=== PATIENT | female | born 1975 | race Caucasian/White ===

== ENCOUNTER 2025-06-08 00:27 | Day surgery (SDC) | payer BC, SELFPAY ==
[2025-05-28 11:56] VITALS: BMI 26.5
--- OUTSIDE RECORDS SUMMARY | 2025-06-08 00:31 | XMS_ITS | Clinical Summary ---
Author Organization [facility] Address [facility] [place] [address] Care Team Providers Care Management Associate Name Role Phone Mer Schilling DO Primary Care Provider [phone] Allergies No known active allergies Medications Multiple Vitamin (MULTIVITAMIN ADULT OR) Active methylPREDNISol one, OBI, 4 MG tabletIndicatio ns:Strain of neck muscle, initial encounter 6 TABLETS ON DAY ONE, 5 TABLETS DAY TWO, 4 TABLETS DAY THREE, 3 TABLETS DAY FOUR, 2 TABLETS DAY FIVE, AND 1 TABLET DAY SIX 1 each 10/25/2020 Active Active Problems No known active problems Immunizations Immunization Administration Dates Next Due Flucelvax 6 Months+ (Prefilled Syringe) 05/08/20 18,05/06/2017,06/12/2016 Influenza Adult (Generic) 05/10/2020,05/16/2015 PFIZER COVID-19 (ORIGINAL FO RMULATION, PURPLE CAP) mRNA, LNP-S, PF, 30 MCG/0.3 ML DOSE 10/03/2020,09/05/2020 Family History Medical History Relation Comments Heart Disease Father Relation Status Comments Father Social History Tobacco Use Types Packs/Day Years Used Date Smoking Tobacco: Never Smokeless Tobacco: Never Tobacco Cessation:Counseling Given: No Alcohol Use Standard Drinks/Week Comments Yes 0 (1 standard drink = 0.6 oz pur e alcohol) PHQ-2 Answer Date Recorded PHQ-2 Score - If the patient scores above 3, please move on to questions 3-9 0 10/25/2020 Comments No Sex and Gender Information Value Date Recorded Sex Assigned at Not on file 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 Gender Identity Not on file Sexual Orientation Not on file Last Filed Vital Signs Vital Sign Reading Time Taken Comments Blood Pressure 122/84 10/25/2020 9:58 AM CDT Pulse 72 10/25/2020 9:58 AM CDT Temperature 36.7 C (98.1 F) 10/25/2020 9:58 AM CDT Respiratory Rate 16 10/25/2020 9:58 AM CDT Oxygen Saturation 99% 10/25/2020 9:58 AM CDT Inhaled Oxygen Concentration - - Weight 60.9 kg (134 lb 4.8 oz) 10/25/2020 9:58 A M CDT Height 154.9 cm (5' 1) 10/25/2020 9:58 AM CDT Body Mass Index 25.38 10/25/2020 9:58 AM CDT Plan of Treatment Health Maintenance Due Date Last Done Comments Cervical Cancer Screening Pap Smear (Age 30 to 64) Every 3 Years 1977 Colorectal Cancer Screening Colonoscopy (10 Years) 1977 Annual Physical 1980 Hepatitis C 1995 DTaP, Tdap and Td Vaccines (1 - Tdap) 1996 Hepatitis B Vaccines (1 of 3 - 19+ 3-dose series) 1996 Cervical Cancer Screening Pap with HPV Testing (Age 30 to 64) Every 5 Years 2007 Cervical Cancer Screening with HPV 2007 Mammogram Screening 2017 PHQ-2 (Physician Andes) 08/02/2024 COVID-19 Vaccine ( season) 2025 10/03/2020, 09/05/2020 Influenza Adult (#1) 2025 05/10/2020, 05/08/2018, 05/06/2017, Additional history exists Hepatitis A Vaccines Aged Out No long er eligible based on patient's age to complete this topic Meningococcal B Vaccine Aged Out No l onger eligible based on patient's age to complete this topic Meningococcal Vaccine Aged Out No charlene gil eligible based on patient's age to complete this topic Pneumococcal Vaccine: Pediatrics (0 to 5 Years) and At-Risk Patients (6 to 49 Years) Aged Out No longer eligible based on patient's age to complete this topic RSV Immunizations Under 20 Months Aged Out No longer eligible based on patient's age to complete this topic Insurance [facility] Care Teams Management Associate Relationship Specialty Start Date End Date Mer Schilling DO [address] [place] [address] PCP - General FAMILY PRACTICE 10/25/20
--- OUTSIDE RECORDS SUMMARY | 2025-06-08 00:31 | XMS_ITS | Encounter Summary ---
Author Organization [facility] Address [address] [place] [address] Care Team Providers Care Car Changer Name Role Phone Mer Schilling DO Primary Care Provider [phone] Encounter Details Date Type Department Care Team (Late st Contact Info) Description 11/23/2024 NX Pharmagent Message Enc [facility] Family Medicine - [place] [address] [facility], [address] [place] [phone] Mer Schilling DO [address] [place], [place] [phone] mammogram Social History Tobacco Use Types Packs/Day Years Used Date Smoking Tobacco: Never Smokeless Tobacco: Never Alcohol Use Standard Drinks/Week Comments Yes 0 (1 standard drink = 0.6 oz pur e alcohol) PHQ-2 Answer Date Recorded PHQ-2 Score - If the patient scores above 3, please move on to questions 3-9 0 10/25/2020 Comments No Sex and Gender Information Value Date Recorded Sex Assigned at Not on file 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
--- OUTSIDE RECORDS SUMMARY | 2025-06-08 00:31 | XMS_ITS | Encounter Summary ---
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
[2025-06-08 12:30] VITALS: BP 121/78; PULSE 97; RESP 16; TEMP 36.6; O2SAT 98; BMI 26.0
[2025-06-08 12:42] LABS: BEDSIDEPREGUCG Negative (Negative)
[2025-06-08] MEDS: LACTATED RINGERS 1,000 ML 150 ML IV CONT (12:51)
--- NOTE | 2025-06-08 13:04 | WPDANESEPPF ---
Anes - Initial Pre Proc Eval Procedure: Operation Date: 06/08/25 13:30 Proposed Procedures p Screening Colonoscopy - Simone Lion MD Date/Time: 06/08/25 13:04 Surgeon: Simone Lion MD Pre Op Diagnosis: Encounter for screening for malignant neoplasm of Patient Data Age: 50 Gender: F Height: 1.57 m Weight: 64.6 kg Last Vital Signs Temp 36.6 C 06/08/25 12:30 Pulse 97 06/08/25 12:30 Resp 16 06/08/25 12:30 BP 121/78 06/08/25 12:30 Pulse Ox 98 06/08/25 12:30 O2 Del Method Room Air 06/08/25 12:30 Allergies Allergy/AdvReac Type Severity Reaction Status Date / Time No Known Allergies Allergy Unknown Verified 06/08/25 12:35 Home Medications ?Medication ?Instructions ?Recorded ?Confirmed ?Type No Home Medications 05/28/25 05/28/25 History Laboratory Tests 06/08/25 12:30 POC Urine HCG, Qual Negative (Negative) Patient hx anesthesia problems: none Family hx anesthesia problems: none Results Review: All pre-operative results and documents have been reviewed as part of the pre-operative evaluation. [facility] Social History Social History Smoking status: Never smoker Alcohol intake: current Drinks per week: 1 Alcohol use details: occ Substance use: never Substance use type: does not use Living arrangements: with family Spiritual care concerns: No Anes - Eval Final PreProcedure Day of Procedure 06/08/25 13:04 Patient weight: overweight Heart: regular rate and rhythm Lungs: clear to auscultation Airway: Mallampati scale class II Neurological: alert and oriented Last oral intake: >/= 8 hours ASA classification: I Emergent: no Anesthetic plan: proceed Anesthesia type and monitoring: general GIVS and standard monitoring Results Review: All pre-operative results and documents have been reviewed as part of the pre-operative evaluation. Informed Consent: The patient's anesthetic plan and its attendant risks and benefits were discussed with the patient/family/POA. Questions were solicited and answers provided to the satisfaction of the patient/family/POA.
--- NOTE | 2025-06-08 13:07 | P.HP_ITS ---
History of Present Illness History of Present Illness Consent: Risks, benefits, and alternatives have been discussed and questions answered. Patient agrees to proceed with procedure. Chief complaint: Encounter for screening for malignant neoplasm of Narrative: Nereida Mobley is a 50 year old female here for first screening colonoscopy Review of Systems Review of Systems: All systems reviewed & are unremarkable except as noted in HPI and below PMFSH Past Medical History Medical History (Updated 06/08/25 @ 13:07 by Simone Lion MD) Colon cancer screening Social History Social History Smoking status: Never smoker Alcohol intake: current Drinks per week: 1 Alcohol use details: occ Substance use: never Substance use type: does not use Living arrangements: with family Spiritual care concerns: No Meds Home Medications and Allergies Home Medications ?Medication ?Instructions ?Recorded ?Confirmed ?Type No Home Medications 05/28/25 05/28/25 H istory Allergies Allergy/AdvReac Type Severity Reaction Status Date / Time No Known Allergies Allergy Unknown Verified 06/08/25 12:35 Vital Signs Vital Signs - 24 hr 06/08/25 12:30 Temperature 97.9 F Pulse Rate 97 Respiratory Rate 16 Blood Pressure 121/78 Pulse Oximetry 98 Oxygen Delivery Room Air Exam Const: General: comfortable and no acute distress HENMT: Face/Nose/Sinus: Normal nares present Eyes: General: appearance normal, both eyes and all related structures Neck: Neck: no JVD Resp: Auscultation: clear to auscultation bilaterally Cardio: Rate: regular rate Rhythm: regular rhythm GI: Inspection: non-distended GI Palp: Yes Soft to palpation Skin: General skin exam: normal color Extrem: General: normal to inspection Psych: Mental Status: mental status grossly normal Assessment and Plan Assessment and plan (1) Colon cancer screening: Code(s): Z12.11 - Encounter for screening for malignant neoplasm of colon Status: Acute Assessment and Plan: colonoscopy
[2025-06-08 13:26] VITALS: BP 88/55; PULSE 62; RESP 19; O2SAT 97
[2025-06-08 13:36] VITALS: BP 95/58; PULSE 73; RESP 19; O2SAT 99
[2025-06-08 13:46] VITALS: BP 100/71; PULSE 70; RESP 17; O2SAT 100
== END 2025-06-08 13:53 | disposition home or self-care (01) ==
PROVIDERS: Anesthesiology; PCP Obstetrics & Gynecology; Referring Provider Obstetrics & Gynecology; Visit Provider Internal Medicine Gastroenterology
PROC: 0DJD8ZZ Inspection of Lower Intestinal Tract, Via Natural or Artificial Opening Endoscopic (ICD-10-PCS; CPT 45378; principal; 2025-06-08 13:30)
DX: Z12.11 Encounter for screening for malignant neoplasm of colon (principal)
CPT/HCPCS: 45378; J2704; J7120